=== PATIENT | female | born 2005 | race African-American/Black ===

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

== ENCOUNTER 2024-06-22 02:15 | Emergency (ER) | payer MEDICAID ==
[~2024-06-22] VITALS: Ht 152.4 cm; Wt 109.0 kg
[2024-06-22 02:22] VITALS: O2SAT 98
[2024-06-22 02:45] VITALS: BP 136/82; PULSE 112; RESP 15; TEMP 97.8; O2SAT 99
[2024-06-22 04:51] LABS: CLARITY URINE CLEAR (CLEAR); COLOR URINE YELLOW (YELLOW); GLUCOSE URINE NEGATIVE (NEGATIVE); KETONES URINE 3+ (NEGATIVE); LEUKOCYTE ESTERASE URINE NEGATIVE (NEGATIVE); NITRITE URINE NEGATIVE (NEGATIVE); OCCULT BLOOD URINE NEGATIVE (NEGATIVE); PH URINE 5.5 (4.5-8.0); PROTEIN URINE TRACE (NEGATIVE); UROBILINOGEN URINE 0.2 E.U./dL (0.2-1.0)
[2024-06-22] MEDS ORDERED: PREN-135 MT (05:17)
[2024-06-22 05:56] LABS: SQUAMOUS EPITHELIAL CELL URINE 1+ /lpf (RARE/1+)
[2024-06-22 05:57] LABS: RBC URINE 0-2 /hpf (0-2); WBC URINE 0-2 /hpf (0-2)
[2024-06-22 05:58] LABS: BACTERIA URINE TRACE
[2024-06-22] MEDS: CEFTRIAXONE SODIUM 500MG VIAL IM ONE (06:00)
[2024-06-22] MEDS: AZITHROMYCIN 500 MG TABLET PO ONE (06:00)
[2024-06-24 09:06] LABS: CHLAMYDIA TRACHOMATIS NAA Positive (Negative); NEISSERIA GONORRHOEAE NAA Negative (Negative)
== END 2024-06-22 06:27 | disposition home or self-care (01) ==
LOC: ER 02:15
DX: O26.892 Other specified pregnancy related conditions, second trimester (principal); N76.0 Acute vaginitis; Z3A.16 16 weeks gestation of pregnancy
CPT/HCPCS: 99285; 76805; 87491; 87591; 81003; 81025; 87210; 96372; J0696

== ENCOUNTER 2024-07-15 14:30 | Emergency (ER) | payer MEDICAID ==
[~2024-07-15] VITALS: Ht 152.4 cm; Wt 92.0 kg
[~2024-07-15 14:30] MED LIST: PREN-135 MT
[2024-07-15 14:53] VITALS: BP 129/84; PULSE 101; RESP 18; TEMP 98.7; O2SAT 98
[2024-07-15] MEDS ORDERED: VALACYCLOVIR HCL 500MG TABLET PO STA (15:27)
[2024-07-15] MEDS ORDERED: AMOXICILLIN/POTASSIUM CLAVULANATE 875/125MG TAB PO ONE (15:30)
[2024-07-15] MEDS ORDERED: VALA100044 MT (15:30)
[2024-07-15] MEDS ORDERED: AMOX1TAB16 MT (15:30)
== END 2024-07-15 19:09 | disposition home or self-care (01) ==
LOC: ER 14:30
DX: K13.0 Diseases of lips (principal); B00.9 Herpesviral infection, unspecified
CPT/HCPCS: 99283